=== PATIENT | male | born 1960 | race Caucasian/White ===

== ENCOUNTER → 2019-11-03 | Emergency (ER) | payer OTHER ==
[~2019-11-03] VITALS: Ht 175.3 cm; Wt 90.7 kg
== END | disposition left against medical advice (07) ==
LOC: ER 23:58
DX: J02.9 Acute pharyngitis, unspecified (principal); Z53.21 Procedure and treatment not carried out due to patient leaving prior to being seen by health care provider

== ENCOUNTER → 2019-11-03 | Emergency (ER) | payer OTHER ==
[~2019-11-03] VITALS: Ht 175.3 cm; Wt 90.7 kg
[2019-11-03 21:06] VITALS: BP 150/89
== END | disposition left against medical advice (07) ==
LOC: ER 20:17
DX: J02.9 Acute pharyngitis, unspecified (principal); Z53.21 Procedure and treatment not carried out due to patient leaving prior to being seen by health care provider